=== PATIENT | female | born 1985 | race Two or more races ===

== ENCOUNTER 2019-11-03 06:53 | Inpatient (IN) | payer OTHER ==
[~2019-11-03] VITALS: Ht 162.6 cm; Wt 100.5 kg
[2019-11-03] MEDS ORDERED: OXYTOCIN 30U/ 0.9% NaCL 500ML 500 ML IV ONE (07:39)
[2019-11-03] MEDS ORDERED: OXYTOCIN 30U/ 0.9% NaCL 500ML 500 ML IV PRN (07:39)
[2019-11-03] MEDS ORDERED: LACTATED RINGERS 1,000 ML IV SCH ×2 (07:39→12:19)
[2019-11-03] MEDS ORDERED: MISOPROSTOL 200 MCG TABLET ONE (07:40)
[2019-11-03] MEDS ORDERED: NEWBORN KIT ONE (07:40)
[2019-11-03] MEDS ORDERED: LIDOCAINE 1%, 20ML ONE (07:40)
[2019-11-03] MEDS ORDERED: OXYTOCIN 30U/ 0.9% NaCL 500ML 500 ML ONE ×2 (07:40→20:39)
[2019-11-03 07:53] VITALS: BP 112/75
[2019-11-03] MEDS ORDERED: FENTANYL PF 100 MCG/2ML IV PRN (08:00)
[2019-11-03] MEDS ORDERED: IBUPROFEN 200 MG TABLET PO PRN (08:00)
[2019-11-03] MEDS ORDERED: ACETAMINOPHEN 325 MG TABLET PO PRN ×2 (08:00→20:30)
[2019-11-03] MEDS ORDERED: TERBUTALINE 1 MG/ML, 1ML SQ PRN (08:00)
[2019-11-03] MEDS ORDERED: METHYLERGONOVINE 0.2 MG/ML IM PRN ×2 (08:00→20:30)
[2019-11-03] MEDS ORDERED: MISOPROSTOL 25 MCG TABLET VG PRN (08:00)
[2019-11-03] MEDS ORDERED: TERBUTALINE 1 MG/ML, 1ML IVPush PRN (08:00)
[2019-11-03] MEDS ORDERED: ALUMINUM/MAG/SIMETHICONE 30 ML UDC PO PRN (08:00)
[2019-11-03] MEDS ORDERED: CALCIUM CARBONATE 500 MG TAB.CHEW PO PRN (08:00)
[2019-11-03] MEDS ORDERED: OXYcodone/APAP 5/325MG TABLET PO PRN ×4 (08:00→20:30)
[2019-11-03] MEDS ORDERED: CARBOPROST TROMETHAMINE 250 MCG/ML, 1ML IM ONE (08:00)
[2019-11-03] MEDS ORDERED: FENTANYL PF 100 MCG/2ML IVPush PRN (08:00)
[2019-11-03] MEDS ORDERED: MISOPROSTOL 200 MCG TABLET PR ONE (08:00)
[2019-11-03 08:25] LABS: BASOPHILS # (AUTO) 0.03 x10^3/uL (0-0.1); BASOPHILS % (AUTO) 0 % (0-1); EOSINOPHILS # (AUTO) 0.08 x10^3/uL (0-0.4); EOSINOPHILS % (AUTO) 1 % (1-7); LYMPHOCYTES # (AUTO) 1.77 x10^3/uL (1-3.4); LYMPHOCYTES % (AUTO) 23 % (22-44); MD NO; MEAN CORPUSCULAR HEMOGLOBIN 32.1 pg (27.0-34.8); MEAN CORPUSCULAR HGB CONC 33.3 g/dL (32.4-35.8); MEAN CORPUSCULAR VOLUME 96.6 fL (80-100); MEAN PLATELET VOLUME 9.3 fL (7.4-10.4); MONOCYTES # (AUTO) 0.63 x10^3/uL (0.2-0.8); MONOCYTES % (AUTO) 8 % (2-9); NEUTROPHILS # (AUTO) 5.17 x10^3/uL (1.8-6.8); NEUTROPHILS % (AUTO) 67 % (42-75); PLATELET COUNT 186 x10^3/uL (130-400); RED BLOOD COUNT 3.84 x10^6/uL (3.82-5.3); RED CELL DISTRIBUTION WIDTH 14.4 % (9.6-15.2)
[2019-11-03] MEDS ORDERED: FENTANYL/BUPIV./NS/PF 250 ML EPIDCONT SCH ×2 (09:00→12:19)
[2019-11-03] MEDS ORDERED: PREN1TAB60 PO (09:02)
[2019-11-03] MEDS ORDERED: FENTANYL/BUPIV./NS/PF 250 ML EPIDCONT ONE (12:21)
[2019-11-03] MEDS ORDERED: BUPIVACAINE 0.25% ONE (12:21)
[2019-11-03] MEDS ORDERED: NALOXONE 0.4 MG/ML, 1ML IVPush PRN (12:30)
[2019-11-03] MEDS ORDERED: EPHEDRINE 50 MG/ML, 1ML IVPush PRN (12:30)
[2019-11-03] MEDS ORDERED: LACTATED RINGERS 1,000 ML IVBOLUS PRN (12:30)
[2019-11-03] MEDS ORDERED: TERBUTALINE 1 MG/ML, 1ML ONE (19:41)
[2019-11-03] MEDS: OXYTOCIN 30U/ 0.9% NaCL 500ML 500 ML IV SCH (20:22)
[2019-11-03] MEDS ORDERED: CARBOPROST TROMETHAMINE 250 MCG/ML, 1ML IM PRN (20:30)
[2019-11-03] MEDS ORDERED: SIMETHICONE 80 MG CHEW TAB PO PRN (20:30)
[2019-11-03] MEDS ORDERED: MISOPROSTOL 200 MCG TABLET PR PRN (20:30)
[2019-11-03] MEDS ORDERED: OXYcodone IR 5MG TABLET PO PRN (20:30)
[2019-11-03] MEDS ORDERED: MISOPROSTOL 200 MCG TABLET PO PRN (20:30)
[2019-11-03] MEDS ORDERED: ONDANSETRON 2MG/ML, 2ML IV PRN (20:30)
[2019-11-03 22:20] VITALS: BP 117/66
[2019-11-04 00:30] VITALS: BP 130/82
[2019-11-04] MEDS: OXYTOCIN 30U/ 0.9% NaCL 500ML 500 ML IV SCH (02:10)
[2019-11-04 03:46] LABS: BASOPHILS % (AUTO) 0 % (0-1); EOSINOPHILS # (AUTO) 0.04 x10^3/uL (0-0.4); EOSINOPHILS % (AUTO) 0 % (1-7); LYMPHOCYTES # (AUTO) 1.62 x10^3/uL (1-3.4); LYMPHOCYTES % (AUTO) 13 % (22-44); MD NO; MEAN CORPUSCULAR HEMOGLOBIN 32.9 pg (27.0-34.8); MEAN CORPUSCULAR HGB CONC 33.7 g/dL (32.4-35.8); MEAN CORPUSCULAR VOLUME 97.6 fL (80-100); MEAN PLATELET VOLUME 9.4 fL (7.4-10.4); MONOCYTES # (AUTO) 0.76 x10^3/uL (0.2-0.8); MONOCYTES % (AUTO) 6 % (2-9); NEUTROPHILS # (AUTO) 9.91 x10^3/uL (1.8-6.8); NEUTROPHILS % (AUTO) 80 % (42-75); PLATELET COUNT 177 x10^3/uL (130-400); RED BLOOD COUNT 3.45 x10^6/uL (3.82-5.3); RED CELL DISTRIBUTION WIDTH 14.3 % (9.6-15.2)
[2019-11-04 05:00] VITALS: BP 118/69
[2019-11-04] MEDS: IBUPROFEN 600 MG TABLET PO PRN ×3 (05:08→20:08)
[2019-11-04 07:05] VITALS: BP 101/59
[2019-11-04] MEDS: PRENATAL VIT/IRON/FA 1 EACH TABLET PO SCH (09:00)
[2019-11-04 12:00] VITALS: BP 101/55
[2019-11-04 19:15] VITALS: BP 116/76
[2019-11-04] MEDS: DOCUSATE 100 MG CAPSULE PO PRN (20:08)
[2019-11-05] MEDS: OXYTOCIN 30U/ 0.9% NaCL 500ML 500 ML IV SCH ×2 (02:22→02:43)
[2019-11-05 08:00] VITALS: BP 123/78
[2019-11-05] MEDS ORDERED: IBUP-1222 PO (08:05)
[2019-11-05] MEDS ORDERED: DOCU-131 PO (08:05)
[2019-11-05] MEDS: PRENATAL VIT/IRON/FA 1 EACH TABLET PO SCH (08:19)
[2019-11-05] MEDS: DOCUSATE 100 MG CAPSULE PO PRN (08:19)
[2019-11-05] MEDS: IBUPROFEN 600 MG TABLET PO PRN (08:19)
== END 2019-11-05 12:37 | disposition home or self-care (01) | DRG 807 ==
LOC: LDIP 07:24 → 2NW 22:11
PROVIDERS: ADMIT Obstetrics & Gynecology; ATTEND Obstetrics & Gynecology
PROC: 10E0XZZ Delivery of Products of Conception, External Approach (ICD-10-PCS; principal; 2019-11-03)
PROC: 10907ZC Drainage of Amniotic Fluid, Therapeutic from Products of Conception, Via Natural or Artificial Opening (ICD-10-PCS; 2019-11-03)
PROC: 3E033VJ Introduction of Other Hormone into Peripheral Vein, Percutaneous Approach (ICD-10-PCS; 2019-11-03)
PROC: 0W8NXZZ Division of Female Perineum, External Approach (ICD-10-PCS; 2019-11-03)
PROC: 3E0R3BZ Introduction of Anesthetic Agent into Spinal Canal, Percutaneous Approach (ICD-10-PCS; 2019-11-03)
PROC: 00HU33Z Insertion of Infusion Device into Spinal Canal, Percutaneous Approach (ICD-10-PCS; 2019-11-03)
DX: O76 Abnormality in fetal heart rate and rhythm complicating labor and delivery (principal); Z37.0 Single live birth; O99.214 Obesity complicating childbirth; Z3A.40 40 weeks gestation of pregnancy; E66.01 Morbid (severe) obesity due to excess calories
CPT/HCPCS: 36415; 82803; 85025; 86850; 86900; G0378; J3490; J2590; J3010; J7120